=== PATIENT | female | born 1960 | race Caucasian/White ===

== ENCOUNTER → 2016-04-14 | Outpatient (CLI) | payer OTHER ==
--- NOTE | 2016-04-19 18:13 | MA ---
Screening Digital Mammogram With iCAD Analysis Clinical Indications: Routine screening. Technique: Standard cephalocaudal projections were obtained. Digital breast tomosynthesis was perform ed in the MLO projection with reconstruction at 1.0-mm slice thickness and composite MLO views recons tructed. This examination was processed by the iCAD computer-aided detection system. Comparison: July 2014 and February 2012. Breast density: Type B; Scattered fibroglandular densities. Findings: CAD was reviewed. Nodular asymmetry as well as a region of microcalcifications have develop ed in the anterior subareolar left breast. The right breast is stable in appearance. Impression: Microcalcifications and nodular asymmetry in the anterior left breast requires further ev aluation/ BI-RADS 0. Recommendation: Spot magnification compression assessment as well as targeted ultrasound suggested fo r further characterization. [facility] will send a result letter to the patient. Negative mammography should not preclude additional workup of a clinically suspicious finding. The patient's information is entered into a reminder system with a target due date for her next mammo gram.
== END ==
LOC: FIMAGING 13:26
DX: Z12.31 Encounter for screening mammogram for malignant neoplasm of breast (principal)
CPT/HCPCS: G0202

== ENCOUNTER → 2016-04-28 | Outpatient (CLI) | payer OTHER ==
--- NOTE | 2016-04-28 14:08 | MA ---
Diagnostic Digital Mammogram Left Breast With iCAD Analysis Reason for examination: Evaluate left breast microcalcifications which have developed since a reducti on mammoplasty in August 2014. Technique: Craniocaudal and true lateral magnification views are obtained. Also, a true lateral is p erformed. The examination is processed by the iCAD computer-aided detection system. Findings: Magnification views confirm dysmorphic calcifications associated with rounded opacity with an appearance highly suggestive of calcifications associated with fat necrosis. The patient does repo rt a palpable area in the region for which ultrasound evaluation is scheduled. Impression: Palpable area with associated microcalcifications requires further evaluation, BI-RADS 0 Recommendation: Targeted left breast ultrasound which will be subsequently performed today. A verbal report was given to the patient. [facility] with send a result letter.
--- NOTE | 2016-04-28 16:24 | US ---
Left Breast Ultrasound History: Evaluate palpable area in the left breast corresponding to a region of dystrophic microcalci fications in a 55-year-old female with a history of previous reduction mammoplasty. Technique: Longitudinal and transverse images were obtained utilizing a 15 MHz transducer. Color Dop pler evaluation is employed for assessment of vascularity. Findings: The palpable area is identified on physical examination. Sonographic interrogation demonstr ates a well-circumscribed hypoechoic region with associated microcalcifications. The constellation of findings on sonography and mammography are consistent with postsurgical fat necrosis. Impression: Benign findings when considering mammographic and sonographic assessment, BI-RADS 2. Recommendation: Resume routine mammographic screening in one year as long as physical examination is negative. If the palpable area enlarges or becomes suspicious for any reason, additional evaluation o r surgical consultation could be considered. Findings and follow-up recommendations were reviewed with the patient in detail. [facility] will send a result letter to the patient.
== END ==
LOC: FIMAGING 13:09
PROVIDERS: ATTEND Family Medicine
DX: R92.0 Mammographic microcalcification found on diagnostic imaging of breast (principal)
CPT/HCPCS: G0206

== ENCOUNTER → 2017-07-18 | Outpatient (CLI) | payer OTHER | LOC: CIMAGING 10:08 | PROVIDERS: ATTEND Family Medicine | DX: Z12.31 Encounter for screening mammogram for malignant neoplasm of breast (principal) ==